=== PATIENT | female | born 1940 | race Caucasian/White ===

== ENCOUNTER 2018-01-16 07:54 | Day surgery (SDC) | payer MEDICARE, OTHER ==
[~2018-01-16] VITALS: Ht 149.9 cm; Wt 71.7 kg
[~2018-01-16 07:54] MED LIST: AMLO10 PO; ASPI81CH PO; ATEN25 PO; FELO5CR PO; Felodipine ER10 MG PO; Glucophage1000 MG PO; HYDR1TAB94 PO; LANS30EC PO; LOSA25 PO; MELO7.5 PO; METF500 PO; METO25ER PO; OXYB5ER PO; SIMV10 PO
== END 2018-01-16 22:36 | disposition home or self-care (01) ==
LOC: ORSCMMR 07:54
PROVIDERS: Internal Medicine Gastroenterology
PROC: 0DBN8ZX Excision of Sigmoid Colon, Via Natural or Artificial Opening Endoscopic, Diagnostic (ICD-10-PCS; principal; 2018-01-16 09:00)
DX: Z12.11 Encounter for screening for malignant neoplasm of colon (principal); K63.5 Polyp of colon; K57.30 Diverticulosis of large intestine without perforation or abscess without bleeding; K64.8 Other hemorrhoids; Z86.010 Personal history of colon polyps; I10 Essential (primary) hypertension; K21.9 Gastro-esophageal reflux disease without esophagitis; E78.00 Pure hypercholesterolemia, unspecified; E11.9 Type 2 diabetes mellitus without complications; Z79.84 Long term (current) use of oral hypoglycemic drugs; Z79.899 Other long term (current) drug therapy
CPT/HCPCS: 82947; 88305; J7120

== ENCOUNTER 2023-01-29 07:20 | Day surgery (SDC) | payer MEDICARE ==
[~2023-01-29] VITALS: Ht 175.3 cm; Wt 70.0 kg
--- NOTE | 2023-01-29 08:44 | NUR ---
01/29/23 0844 Loli Olivo EYE BED, RAILS UP, KNEES FLEXED.
== END 2023-01-29 09:28 | disposition home or self-care (01) ==
LOC: ORSCSDS 07:20
PROVIDERS: Student in an Organized Health Care Education/Training Program
PROC: 08DK3ZZ Extraction of Left Lens, Percutaneous Approach (ICD-10-PCS; principal; 2023-01-29 08:30)
DX: E11.36 Type 2 diabetes mellitus with diabetic cataract (principal); H25.12 Age-related nuclear cataract, left eye; Z96.1 Presence of intraocular lens; I10 Essential (primary) hypertension; I25.10 Atherosclerotic heart disease of native coronary artery without angina pectoris; Z79.84 Long term (current) use of oral hypoglycemic drugs; Z79.899 Other long term (current) drug therapy
CPT/HCPCS: 82947; J2001; J2250; J7040; V2632

== ENCOUNTER → 2023-12-05 | Outpatient (CLI) | payer MEDICARE | LOC: LAB 11:32 → LAB SHORT 11:32 | DX: E11.9 Type 2 diabetes mellitus without complications (principal) | CPT/HCPCS: 36415; 83036 ==

== ENCOUNTER → 2025-01-09 | Outpatient (CLI) | payer MEDICARE ==
[2025-01-11 20:26] LABS: Creatinine Urine 96.6 mg/dL (27.00-270.00); Microalbumin, Urine Quant. 58.9 mg/L (0.000-20.000); Protein, Urine Quantitative 23.7 mg/dL (0.0-11.9)
== END ==
LOC: LAB SHORT 09:00 → LAB 09:00
PROVIDERS: Internal Medicine Nephrology
DX: N18.30 Chronic kidney disease, stage 3 unspecified (principal); D63.1 Anemia in chronic kidney disease; N25.81 Secondary hyperparathyroidism of renal origin; E55.9 Vitamin D deficiency, unspecified; E78.00 Pure hypercholesterolemia, unspecified; R76.9 Abnormal immunological finding in serum, unspecified; R94.5 Abnormal results of liver function studies; R94.6 Abnormal results of thyroid function studies; G50.9 Disorder of trigeminal nerve, unspecified; D51.8 Other vitamin B12 deficiency anemias; G60.9 Hereditary and idiopathic neuropathy, unspecified
CPT/HCPCS: 81050; 82043; 82570; 84156